=== PATIENT | male | born 1980 | race Caucasian/White ===

== ENCOUNTER 2016-09-29 12:31 | Emergency (ER) | payer BC ==
[~2016-09-29] VITALS: Ht 175.3 cm; Wt 83.5 kg
[~2016-09-29 12:31] MED LIST: DIAZ2TAB PO; FRCT/ PO; OXYC1TAB3 PO; PANT40TA PO; XOPENEX INHALER INH
[2016-09-29 12:39] VITALS: TEMP 36.5; Ht 175.3 cm; Wt 83.5 kg
[2016-09-29] MEDS ORDERED: ALUMINUM/MAGNESIUM SUSP 30 ML UDC PO STA (13:39)
[2016-09-29] MEDS ORDERED: LIDOCAINE HCL 2% VISC SOLN 20 ML UDC PO STA (13:39)
[2016-09-29 13:59] LABS: HEMATOCRIT 45.4 % (42-52); MEAN CELL VOLUME 82.2 fL (80-100); MEAN CORPUSCULAR HEMOGLOBIN 30.1 pg (25-34); MEAN CORPUSCULAR HGB CONC 36.6 g/dl (32-36); MEAN PLATELET VOLUME 10.8 fL (7.4-10.4); PLATELET COUNT 169 K/uL (130-400); RED BLOOD COUNT 5.52 M/uL (4.7-6.1); WHITE BLOOD COUNT 19.01 K/uL (4.8-10.8)
[2016-09-29 14:12] LABS: PROTHROMBIN TIME (PATIENT) 11.1 SECONDS (9.0-12.0)
[2016-09-29] MEDS ORDERED: LEVA45AE INH (14:16)
[2016-09-29 14:18] LABS: ALT/SGPT 38 U/L (12-78); AST/SGOT 15 U/L (15-37); BLOOD UREA NITROGEN 18 mg/dl (7-18); BUN/CREATININE RATIO 14.7 (10-20); CARBON DIOXIDE 26 mmol/L (21-32); CHLORIDE 107 mmol/L (98-107); GLUCOSE 88 mg/dl (70-99); POTASSIUM 3.7 mmol/L (3.5-5.1); SODIUM 144 mmol/L (136-145)
[2016-09-29 14:23] LABS: ALKALINE PHOSPHATASE 63 U/L (45-117)
--- NOTE | 2016-09-29 14:31 | DIAGNOSTIC IMAGING REPORT ---
CHEST 2 VIEWS ROUTINE HISTORY: Atypical chest pain COMPARISON: Chest 05/19/2016. FINDINGS: The lungs are clear. Cardiac silhouette is normal in size. No pleural effusions. No pneumothorax. IMPRESSION: No acute process. Electronically signed by: Dung Morales M.D. 09/29/2016 2:30 PM Dictated Date/Time: 09/29/2016 2:26 PM
[2016-09-29 14:41] LABS: BASO % 0.2 %; BASO ABS # 0.03 K/uL (0-0.2); COMPLETE YES; EOS % 0.3 %; IG% 0.2 %; LYMPH % 70.7 %; LYMPH ABS # 13.44 K/uL (1.2-3.4); NEUT % 26.6 %; SMUDGE CELLS PRESENT
[2016-09-29] MEDS ORDERED: KETOROLAC TROMETHAMINE 30 MG/ML VIAL IV STA (15:36)
--- NOTE | 2016-09-29 15:56 | EMERGENCY ROOM VISIT NOTE ---
History First contact with patient: 13:33 Chief Complaint: CHEST PAIN Stated Complaint: CHEST PAINS X 1 HOUR, NAUSEA Nursing Triage Summary: intermittennt chest pain for 1 hour, occurred while eating nausea mid sternal to left sided History of Present Illness The patient is a 36 year old male who presents to the Emergency Room with complaints of intermittent chest pain which started at 11:30 while he was eating. He states at first it was every few minutes and now it's every 20-30 minutes. He describes it as dull and achy. The patient denies any jaw pain. The patient does admit to left arm pain that has been going on for some time. The patient admits to some nausea which is better but denies any vomiting. The patient denies any change in bowel habits. He denies any urinary symptoms. The patient denies any chest tightness, leg pain, tobacco use, recent travel, history of clots. The patient states that he does have a history of reflux he was placed on Protonix when he was in the emergency room on another occasion. He was taking it but then there was an issue with his insurance and therefore he has not been taking it for the past month. The patient denies any family history of early cardiac disease. The patient himself denies any hyperlipidemia hypertension, asthma or COPD. He denies any CAD. Review of Systems 10 system review was performed and was negative unless stated otherwise history of present illness. Past Medical/Surgical History Medical Problems: (1) Chronic lymphocytic leukemia, Stiles stage 0 As, reflux, testicular torsion, hydrocele repair Family History Cancer FHx: seizures Heart disease Social History Smoking Status: Never Smoker Alcohol Use: occasionally Marital Status: Housing Status: lives with family Occupation Status: employed Current/Historical Medications Scheduled Pantoprazole (Protonix), 40 MG PO DAILY Scheduled PRN Acetamin/Butalbital/Caffeine (Fioricet), 1 TAB PO for Pain Levalbuterol Tartrate (Levalbuterol Tartrate Hfa), 2 PUFFS INH BID PRN for SOB/ Wheezing Allergies Coded Allergies: Guaifenesin (Unverified Allergy, Intermediate, "HEART PALPITATIONS", ) Physical Exam Vital Signs Date Time Temp Pulse Resp B/P Pulse Ox O2 Delivery O2 Flow Rate FiO2 09/29/16 14:43 68 18 113/68 96 Room Air 09/29/16 13:51 74 2/13/17 13:48 68 18 134/85 96 Room Air 09/29/16 12:39 36.5 85 20 149/102 99 Room Air Physical Exam GENERAL: 36-year-old white male appears in no acute distress. MENTAL Status:: Patient is alert oriented 3 EYES: PERRLA. EOMs intact. NECK: Supple, no lymphadenopathy noted. No carotid bruits noted. LUNGS: Clear auscultation without wheezes rales or rhonchi. CARDIAC: Regular rate and rhythm without murmur. Pulses is full and equal throughout. ABDOMEN: Positive bowel sounds all 4 quadrants. Soft, mild tenderness palpation in the epigastric region otherwise nontender to palpation without organomegaly or masses. LOWER EXTREMITY: Calves are nontender. No cyanosis or edema noted. No palpable cords. Medical Decision & Procedures ER Provider Diagnostic Interpretation: CHEST 2 VIEWS ROUTINE HISTORY: Atypical chest pain COMPARISON: Chest 05/19/2016. FINDINGS: The lungs are clear. Cardiac silhouette is normal in size. No pleural effusions. No pneumothorax. IMPRESSION: No acute process. Electronically signed by: Dung Morales M.D. 09/29/2016 2:30 PM Dictated Date/Time: 09/29/2016 2:26 PM Laboratory Results 09/29/16 13:50 Red Blood Count 5.52, Mean Corpuscular Volume 82.2, Mean Corpuscular Hemoglobin 30.1, Mean Corpuscular Hemoglobin Concent 36.6, Mean Platelet Volume 10.8, Neutrophils (%) (Auto) 26.6, Lymphocytes (%) (Auto) 70.7, Monocytes (%) (Auto) 2.0, Eosinophils (%) (Auto) 0.3, Basophils (%) (Auto) 0.2, Neutrophils # (Auto) 5.07, Lymphocytes # (Auto) 13.44, Monocytes # (Auto) 0.38, Eosinophils # (Auto) 0.06, Basophils # (Auto) 0.03 09/29/16 13:50 Test 09/29/16 13:50 09/29/16 15:24 White Blood Count 19.01 K/uL (4.8-10.8) Red Blood Count 5.52 M/uL (4.7-6.1) Hemoglobin 16.6 g/dL (14.0-18.0) Hematocrit 45.4 % (42-52) Mean Corpuscular Volume 82.2 fL (80-100) Mean Corpuscular Hemoglobin 30.1 pg (25-34) Mean Corpuscular Hemoglobin Concent 36.6 g/dl (32-36) Platelet Count 169 K/uL (130-400) Mean Platelet Volume 10.8 fL (7.4-10.4) Neutrophils (%) (Auto) 26.6 % Lymphocytes (%) (Auto) 70.7 % Monocytes (%) (Auto) 2.0 % Eosinophils (%) (Auto) 0.3 % Basophils (%) (Auto) 0.2 % Neutrophils # (Auto) 5.07 K/uL (1.4-6.5) Lymphocytes # (Auto) 13.44 K/uL (1.2-3.4) Monocytes # (Auto) 0.38 K/uL (0.11-0.59) Eosinophils # (Auto) 0.06 K/uL (0-0.5) Basophils # (Auto) 0.03 K/uL (0-0.2) RDW Standard Deviation 37.3 fL (36.4-46.3) RDW Coefficient of Variation 12.5 % (11.5-14.5) Immature Granulocyte % (Auto) 0.2 % Immature Granulocyte # (Auto) 0.03 K/uL (0.00-0.02) Smudge Cells PRESENT Prothrombin Time 11.1 SECONDS (9.0-12.0) Prothromb Time International Ratio 1.0 (0.9-1.1) Activated Partial Thromboplast Time 25.2 SECONDS (21.0-31.0) Partial Thromboplastin Ratio 1.0 Anion Gap 11.0 mmol/L (3-11) Est Creatinine Clear Calc Drug Dose 86.0 ml/min Estimated GFR () 90.3 Estimated GFR (Non- 77.9 BUN/Creatinine Ratio 14.7 (10-20) Calcium Level 9.0 mg/dl (8.5-10.1) Total Bilirubin 0.3 mg/dl (0.2-1) Direct Bilirubin < 0.1 mg/dl (0-0.2) Aspartate Amino Transf (AST/SGOT) 15 U/L (15-37) Alanine Aminotransferase (ALT/SGPT) 38 U/L (12-78) Alkaline Phosphatase 63 U/L (45-117) Total Creatine Kinase 93 U/L (39-308) Creatine Kinase MB < 0.5 ng/ml (0.5-3.6) Creatine Kinase MB Ratio (0-3.0) Total Protein 7.7 gm/dl (6.4-8.2) Albumin 4.4 gm/dl (3.4-5.0) Lipase 137 U/L (73-393) Bedside Troponin I 0.000 ng/ml (0-0.045) Medications Administered Medications (Trade) Dose Ordered Sig/Bhumika Route Start Time Stop Time Status Last Admin Dose Admin Lidocaine HCl (Viscous Lidocaine 2% Soln) 10 ml NOW STAT PO 09/29/16 13:39 09/29/16 13:42 DC 09/29/16 13:55 10 ML Al Hydroxide/Mg Hydroxide (Maalox Susp) 30 ml NOW STAT PO 09/29/16 13:39 09/29/16 13:43 DC 09/29/16 13:54 30 ML Ketorolac Tromethamine (Toradol Inj) 30 mg NOW STAT IV 09/29/16 15:36 09/29/16 15:37 DC 09/29/16 15:49 30 MG ED Course The patient was evaluated. The patient was placed on a monitor. EKG was ordered and interpreted as above without any acute findings. IV access was obtained. The patient was given a GI cocktail. The patient had complete resolution of his chest pain with the GI cocktail. CBC and differential, coags , CK-MB, renal profile, LFTs and lipase levels were ordered. Point of care troponin was ordered. Labs are reviewed. The patient's white count was elevated at 19,000 but the patient has CLL. He states this is a normal number for him. Otherwise labs are unremarkable. First [id number] troponin was within normal range. Chest x-ray was ordered and interpreted by the radiologist myself as above without any acute findings. The patient's case was discussed with Dr. Michael who agree with treatment plan. A 90 minute troponin was ordered and was negative. The patient was complaining of left shoulder pain which she has had on a chronic basis. He states he has increased since he has been lying in the stretcher. He was given Toradol 30 mg IV for the pain. The patient was discharged home in stable condition. Medical Decision Differential diagnosis include GERD, acute [place], PE, acute bronchitis, pneumonia, muscular strain Impression Primary Impression: Non-cardiac chest pain Additional Impression: GERD (gastroesophageal reflux disease) Departure Information Dispostion Home / Self-Care Condition GOOD Referrals Nahed Starr M.D. (PCP) Forms HOME CARE DOCUMENTATION FORM, IMPORTANT VISIT INFORMATION Patient Instructions ED GERD, My [facility] liveBooks [facility] Additional Instructions Recommend either getting her prescription for Protonix or taking Prilosec over- the-counter daily. Take Zantac 150 mg at bedtime. Recommend taking ibuprofen or Tylenol as needed for your left shoulder pain. If symptoms persists recommend following up with your family physician for further evaluation and treatment. Problem Qualifiers Additional Impression: GERD (gastroesophageal reflux disease) Esophagitis presence: without esophagitis Qualified Codes: K21.9 - Gastro- esophageal reflux disease without esophagitis
[2016-09-29 16:09] VITALS: BP 113/80; PULSE 73; O2SAT 97
== END 2016-09-29 16:11 | disposition home or self-care (01) ==
LOC: C.EDB 12:32 → C.EDC 16:11
DX: R07.9 Chest pain, unspecified (principal); K21.9 Gastro-esophageal reflux disease without esophagitis; M25.512 Pain in left shoulder; G89.29 Other chronic pain; Z85.6 Personal history of leukemia; Z79.899 Other long term (current) drug therapy; Z88.8 Allergy status to other drugs, medicaments and biological substances; Z80.9 Family history of malignant neoplasm, unspecified; Z82.49 Family history of ischemic heart disease and other diseases of the circulatory system; Z82.0 Family history of epilepsy and other diseases of the nervous system

== ENCOUNTER → 2017-02-03 | Outpatient (CLI) | payer BC ==
[~2017-02-03] MED LIST changes: -DIAZ2TAB PO; +LEVA45AE INH; -PANT40TA PO; +TRAM-10 PO; -XOPENEX INHALER INH
--- NOTE | 2017-02-03 08:24 | DIAGNOSTIC IMAGING REPORT ---
MRI OF THE CERVICAL SPINE WITHOUT IV CONTRAST CLINICAL HISTORY: Facial numbness. Dizziness. Chronic neck pain. COMPARISON STUDY: No priors. TECHNIQUE: MRI of the cervical spine is performed utilizing various T1 and T2-weighted sequences in the axial and sagittal planes. IV contrast was not administered for this examination. FINDINGS: Cervical spine: Vertebral body height and alignment are maintained throughout the cervical spine. Normal marrow signal intensity is preserved throughout the visualized osseous structures. There is mild straightening of the cervical lordosis. The atlantodental articulation appears preserved. The spinous processes are intact. Intervertebral discs: Minimal degenerative disc desiccation is noted. The disc spaces are maintained. Spinal cord: The cervical spinal cord is normal in morphology and signal intensity. C2-C3: Unremarkable. C3-C4: Unremarkable. C4-C5: Unremarkable. C5-C6: Minimal facet arthropathy is of no consequence. The central canal and neural foramina are widely patent. C6-C7: Unremarkable. C7-T1: Unremarkable. Soft tissues: The prevertebral and paraspinous soft tissues are within normal limits. Brain parenchyma: Partially imaged brain parenchyma at the skull base is within normal limits. IMPRESSION: 1. There is no disc herniation, central canal stenosis, or neural foraminal narrowing seen throughout the cervical spine. 2. The cervical spinal cord is normal in morphology and signal intensity. Dictated: 02/03/2017 7:51 AM Transcribed: 02/03/2017 8:24 AM [facility] Electronically signed by: Bharathi Basurto M.D. 02/03/2017 8:46 AM Dictated Date/Time: 02/03/2017 7:51 AM
== END | disposition home or self-care (01) ==
PROVIDERS: ATTEND Physician Assistant
DX: M54.2 Cervicalgia (principal); R20.0 Anesthesia of skin; R42 Dizziness and giddiness

== ENCOUNTER 2017-04-04 12:26 | Emergency (ER) | payer BC ==
[~2017-04-04] VITALS: Ht 175.3 cm; Wt 82.8 kg
[~2017-04-04 12:26] MED LIST changes: -OXYC1TAB3 PO; -TRAM-10 PO
[2017-04-04 12:41] VITALS: TEMP 36.7; Ht 175.3 cm; Wt 82.8 kg
[2017-04-04] MEDS ORDERED: ONDANSETRON INJ 2 MG/ML 2 ML VIAL IV STA (13:05)
[2017-04-04] MEDS ORDERED: SODIUM CHLORIDE 0.9% 1000ML 1,000 ML IV STA ×2 (13:05→13:57)
[2017-04-04] MEDS ORDERED: MoRPHine SULFATE 4 MG/ML 1 ML CARP\\VIAL IV PRN (13:15)
[2017-04-04] MEDS ORDERED: DIPHTHERIA/TETANUS/PERTUSSIS 0.5 ML SYR/VIAL IM. ONE ×2 (13:15→16:30)
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
[2017-04-04] MEDS ORDERED: OPTIRAY 320 IV PRN (13:30)
[2017-04-04 13:34] LABS: ISTAT CREATININE 1.5 mg/dl (0.6-1.3); ISTAT IONIZED CALCIUM 1.22 mmol/l (1.12-1.32)
--- NOTE | 2017-04-04 13:34 | DIAGNOSTIC IMAGING REPORT ---
CHEST ONE VIEW PORTABLE CLINICAL HISTORY: Abdominal pain. COMPARISON STUDY: Chest radiograph September 29, 2016. FINDINGS: There is no pneumothorax or pleural effusion. Cardiomediastinal silhouette is unremarkable. Linear left midlung opacity suggests atelectasis. There is no evidence of pulmonary edema. There is no consolidation to suggest pneumonia. IMPRESSION: No acute cardiopulmonary findings. Electronically signed by: Bossman Ibarra M.D. 04/04/2017 1:33 PM Dictated Date/Time: 04/04/2017 1:32 PM
[2017-04-04 13:41] LABS: HEMATOCRIT 46.8 % (42-52); MEAN CELL VOLUME 83.6 fL (80-100); MEAN CORPUSCULAR HEMOGLOBIN 30.5 pg (25-34); MEAN CORPUSCULAR HGB CONC 36.5 g/dl (32-36); MEAN PLATELET VOLUME 10.9 fL (7.4-10.4); PLATELET COUNT 176 K/uL (130-400); WHITE BLOOD COUNT 26.36 K/uL (4.8-10.8)
[2017-04-04 14:01] LABS: BUN/CREATININE RATIO 15.1 (10-20); CALCIUM 9.7 mg/dl (8.5-10.1); CREATININE 1.5 mg/dl (0.60-1.40); POTASSIUM 3.9 mmol/L (3.5-5.1)
[2017-04-04 14:18] LABS: PARTIAL THROMBOPLASTIN RATIO 0.9; PROTHROMBIN TIME (PATIENT) 11.1 SECONDS (9.0-12.0)
[2017-04-04] MEDS ORDERED: TRAM-10 PO ×2 (14:24→16:28)
[2017-04-04 14:32] LABS: BASO % 0.1 %; BASO ABS # 0.03 K/uL (0-0.2); COMPLETE YES; EOS % 0.2 %; IG% 0.3 %; LYMPH % 61.9 %; LYMPH ABS # 16.31 K/uL (1.2-3.4); MONO % 2.5 %; SMUDGE CELLS PRESENT
--- NOTE | 2017-04-04 15:08 | DIAGNOSTIC IMAGING REPORT ---
CT OF THE HEAD WITHOUT CONTRAST CLINICAL HISTORY: Fall. COMPARISON STUDY: MRI of the brain November 16, 2015. TECHNIQUE: Helical axial images of the head were obtained without IV contrast. Automated exposure control was utilized for the study. A dose lowering technique was utilized adhering to the principles of ALARA. FINDINGS: No acute intracranial hemorrhage, midline shift or mass effect is present. Ventricular system is normal. Basilar cisterns are patent. No extra axial collections are present. Wright-white differentiation is maintained. There is no calvarial fracture. Visualized portions of the sinuses and mastoid air cells are clear. IMPRESSION: 1. No acute intracranial findings. 2. No calvarial fracture. Electronically signed by: Bossman Ibarra M.D. 04/04/2017 3:07 PM Dictated Date/Time: 04/04/2017 3:05 PM
--- NOTE | 2017-04-04 15:13 | DIAGNOSTIC IMAGING REPORT ---
CT OF THE CERVICAL SPINE WITHOUT CONTRAST CLINICAL HISTORY: Trauma. COMPARISON STUDY: MRI of the cervical spine February 03, 2017. TECHNIQUE: Helical axial images of the cervical spine were obtained without IV contrast. Sagittal and coronal reconstructions were viewed. A dose lowering technique was utilized adhering to the principles of ALARA. FINDINGS: Craniocervical junction is intact. There is no acute cervical spine fracture. There is no prevertebral edema. The chest CT will be reported separately. IMPRESSION: No acute cervical spine fracture or subluxation. Electronically signed by: Bossman Ibarra M.D. 04/04/2017 3:11 PM Dictated Date/Time: 04/04/2017 3:07 PM
--- NOTE | 2017-04-04 15:19 | DIAGNOSTIC IMAGING REPORT ---
CT OF THE CHEST WITH IV CONTRAST CLINICAL HISTORY: Trauma. COMPARISON STUDY: Chest radiograph September 29, 2016 and April 04, 2017. TECHNIQUE: Following IV administration of 94 mL of Optiray-320, helical axial images of the chest were obtained. Sagittal and coronal reconstructions were viewed as well as maximal intensity projections on an independent 3-D workstation. A dose lowering technique was utilized adhering to the principles of ALARA. FINDINGS: There is no evidence of traumatic injury to the thoracic aorta. Residual thymus is noted. Size pf the heart is normal. There is no mediastinal hematoma. Prominent bilateral axillary lymph nodes are noted. These are at the upper limits of normal for size. No pneumothorax or pulmonary contusion is present. Groundglass opacities reflect atelectasis. No acute rib or thoracic spine fracture is identified. There are no traumatic findings within the upper abdomen. A 7 mm left lobe thyroid nodule is incidentally noted. IMPRESSION: No acute traumatic findings within the chest. Electronically signed by: Bossman Ibarra M.D. 04/04/2017 3:18 PM Dictated Date/Time: 04/04/2017 3:12 PM
--- NOTE | 2017-04-04 15:32 | DIAGNOSTIC IMAGING REPORT ---
CT OF THE ABDOMEN AND PELVIS WITH CONTRAST CLINICAL HISTORY: Fall. COMPARISON STUDY: CT of the abdomen and pelvis May 19, 2016. TECHNIQUE: Following IV administration of 94 mL of Optiray-320, axial images of the abdomen and pelvis were obtained from the lung bases to the proximal femurs. Images were reviewed in the axial, sagittal, and coronal planes. IV contrast was administered without complication. A dose lowering technique was utilized adhering to the principles of ALARA. CT DOSE: 2683.78 mGy.cm FINDINGS: No pneumoperitoneum is present. There is no evidence of traumatic injury to the liver, spleen, adrenal glands, right kidney or pancreas. A right renal cyst is noted. There is trace left perinephric fluid which measures above water attenuation. This was not present on CT of May 19, 2016. Caliber and wall thickness of small and large bowel are normal. There is no hemoperitoneum. No acute pelvic or lumbar spine fracture is identified. IMPRESSION: 1. Trace left perinephric fluid which likely measures above water attenuation. This is nonspecific but given the clinical history could reflect trace perinephric hemorrhage. No discrete renal laceration identified. Close clinical monitoring is recommended. Findings discussed with Dr. Tavarez at time of dictation. 2. No additional traumatic findings within the abdomen or pelvis. Electronically signed by: Bossman Ibarra M.D. 04/04/2017 3:30 PM Dictated Date/Time: 04/04/2017 3:18 PM
[2017-04-04 15:57] LABS: URINE APPEARANCE CLOUDY (CLEAR); URINE BILIRUBIN NEG (NEG); URINE COLOR YELLOW; URINE NITRITE NEG (NEG); URINE SPECIFIC GRAVITY 1.022 (1.000-1.030); UROBILINOGEN NEG (NEG)
[2017-04-04 15:58] LABS: MANUAL MICROSCOPIC REQUIRED? NO; REVIEW REQ? YES
[2017-04-04 16:12] LABS: URINE MUCUS PRESENT (NONE PRSENT)
[2017-04-04] MEDS ORDERED: TRAMADOL HCL 50 MG TAB PO STA (16:13)
[2017-04-04 16:16] LABS: URINE EPITHELIAL CELL AUTO 0-5 /lpf (0-5)
[2017-04-04] MEDS ORDERED: OXYC1TAB3 PO (17:26)
[2017-04-04 17:42] VITALS: BP 117/71; PULSE 68; O2SAT 98
== END 2017-04-04 17:38 | disposition home or self-care (01) ==
LOC: C.EDB 12:26
DX: S29.8XXA Other specified injuries of thorax, initial encounter (principal); S39.81XA Other specified injuries of abdomen, initial encounter; S37.012A Minor contusion of left kidney, initial encounter; N17.9 Acute kidney failure, unspecified; V18.0XXA Pedal cycle driver injured in noncollision transport accident in nontraffic accident, initial encounter; Y92.828 Other wilderness area as the place of occurrence of the external cause; Z85.6 Personal history of leukemia; Z80.9 Family history of malignant neoplasm, unspecified; Z82.49 Family history of ischemic heart disease and other diseases of the circulatory system; J45.909 Unspecified asthma, uncomplicated; N44.00 Torsion of testis, unspecified

== ENCOUNTER → 2017-07-07 | Outpatient (CLI) | payer BC ==
[~2017-07-07] MED LIST changes: -FRCT/ PO; +OPTIRAY 320 IV PRN; +OXYC1TAB3 PO; +TRAM-10 PO
--- NOTE | 2017-07-07 11:56 | DIAGNOSTIC IMAGING REPORT ---
CT ABDOMEN COMBO CT DOSE: 1455.51 mGycm CLINICAL HISTORY: N28.89 Renal hemorrhage, TECHNIQUE: Unenhanced images were obtained through the upper abdomen. Patient was then scanned in a dynamic helical fashion during intravenous administration of 95 cc of Optiray 320. 5 minute delayed images were also acquired. A dose lowering technique was utilized adhering to the principles of ALARA. COMPARISON STUDY: April 04, 2017 FINDINGS: The visualized portions of the lung bases are unremarkable. No hepatic masses are visualized. No gallbladder abnormality is visualized. There is splenic masses are visualized. The spleen is borderline enlarged measuring 11.6 cm. No pancreatic masses are visualized. No adrenal masses are visualized. There are no perinephric fluid collections. There is no hydronephrosis. There is a 16 mm right renal cyst. There is a 5 mm hyperdense left renal cyst. No collecting system lesions are visualized. There is no evidence of abdominal aortic dilatation. There are scattered Lymph nodes which are not pathologically enlarged by size criteria. IMPRESSION: 1. Interval resolution of the trace left-sided perinephric fluid 2. 16 mm right renal cyst and 5 mm hyperdense left renal cyst 3. No acute intra-abdominal findings. Electronically signed by: Silvio Gautam M.D. 07/07/2017 11:54 AM Dictated Date/Time: 07/07/2017 11:48 AM
== END | disposition home or self-care (01) ==
LOC: C.CTS 10:40
PROVIDERS: ATTEND Urology
DX: N28.89 Other specified disorders of kidney and ureter (principal); N28.1 Cyst of kidney, acquired

== ENCOUNTER 2017-08-12 16:43 | Emergency (ER) | payer BC ==
[~2017-08-12] VITALS: Ht 175.3 cm; Wt 90.2 kg
[~2017-08-12 16:43] MED LIST changes: -OPTIRAY 320 IV PRN
[2017-08-12 16:46] VITALS: TEMP 36.7; Ht 175.3 cm; Wt 90.2 kg
[2017-08-12 16:55] VITALS: O2SAT 96
[2017-08-12] MEDS ORDERED: FRCT/ PO (17:06)
--- NOTE | 2017-08-12 17:16 | EMERGENCY ROOM VISIT NOTE ---
History Report prepared by Estella: Nguyen Hartman Under the Supervision of: Dr. Irvin Garcia M.D. First contact with patient: 16:52 Chief Complaint: CHEST PAIN Stated Complaint: CHEST PAIN Nursing Triage Summary: Patient c/o of chest pain on and off for weeks, worse today. History of Present Illness The patient is a 37 year old male with a past medical history of Chronic lymphocytic leukemia who presents to the ED with a cc of worsening chest pain beginning a few days ago. Positive history of atrial tachycardia and palpitations. nausea, vomiting, dizziness, and swelling in his legs. Negative history of blood clots, trauma, rashes, or sob. The patient states that about an hour ago he had a left sided chest pain episode that lasted about 5 minutes, noting it was different then any chest pain he experienced before. He describes his discomfort as a pressure on his chest, that worsens with movement. He notes that he felt warm throughout his body for a few seconds. The patient states he felt sick all last week. Source of History: patient Onset: few days ago Position: chest (left) Quality: pressure, other (chest pain) Timing: worsening Modifying Factors (Worsening): movement Associated Symptoms: + nausea, + vomiting, No SOB Review of Systems See HPI for pertinent positives and negatives. A total of ten systems were reviewed and were otherwise negative. Past Medical & Surgical Medical Problems: (1) Chronic lymphocytic leukemia, Stiles stage 0 Family History Cancer FHx: seizures Heart disease Social History Smoking Status: Never Smoker Alcohol Use: occasionally Drug Use: none Marital Status: Housing Status: lives with family Occupation Status: employed Current/Historical Medications Scheduled PRN Acetamin/Butalbital/Caffeine (Fioricet), 1 TAB PO DIRECTED PRN for Migraine Levalbuterol Tartrate (Levalbuterol Tartrate Hfa), 2 PUFFS INH BID PRN for SOB/ Wheezing Allergies Coded Allergies: Guaifenesin (Verified Allergy, Intermediate, "HEART PALPITATIONS", ) Physical Exam Vital Signs Date Time Temp Pulse Resp B/P (MAP) Pulse Ox O2 Delivery O2 Flow Rate FiO2 08/12/17 20:25 76 18 115/73 99 08/12/17 18:30 136/96 08/12/17 18:18 64 19 93 08/12/17 18:00 135/89 08/12/17 17:48 61 20 95 08/12/17 17:43 63 13 94 08/12/17 17:38 64 08/12/17 17:30 120/80 08/12/17 17:04 69 18 134/92 96 Room Air 08/12/17 17:00 134/92 08/12/17 16:55 96 Room Air 08/12/17 16:55 96 Room Air 08/12/17 16:46 36.7 72 18 165/92 100 Room Air Physical Exam GENERAL: Awake, alert, well-appearing, NAD HENT: Wears glasses. Normocephalic, atraumatic. EYES: Normal conjunctiva. Sclera non-icteric. NECK: Supple. No nuchal rigidity. FROM. RESPIRATORY: CTAB, no rhonchi, wheezing, crackles CARDIAC: RRR, no MRG ABDOMEN: Soft, NTND, BS+ MSK: No calve pain. No chest wall TTP, no LE edema NEURO: GCS 15, CN 2-12 intact, moves all 4s on command SKIN: No rash or jaundice noted. Medical Decision & Procedures ER Provider Diagnostic Interpretation: Radiology results as stated below per my review and radiologist interpretation: SINGLE VIEW CHEST CLINICAL HISTORY: Atypical chest pain. FINDINGS: An AP, portable, upright chest radiograph is compared to chest x-ray and chest CT dated 04/04/2017. The examination is degraded by portable technique and apical lordotic positioning. The cardiomediastinal silhouette is unremarkable. The lungs and pleural spaces are clear. No pneumothorax is seen. The bony thorax is grossly intact. IMPRESSION: No active disease in the chest. Electronically signed by: Bharathi Basurto M.D. 08/12/2017 5:59 PM Dictated Date/Time: 08/12/2017 5:58 PM Laboratory Results 08/12/17 16:55 Red Blood Count 5.53, Mean Corpuscular Volume 84.3, Mean Corpuscular Hemoglobin 30.2, Mean Corpuscular Hemoglobin Concent 35.8, Mean Platelet Volume 10.7, Neutrophils (%) (Auto) 18.6, Lymphocytes (%) (Auto) 77.0, Monocytes (%) (Auto) 3.3, Eosinophils (%) (Auto) 0.7, Basophils (%) (Auto) 0.2, Neutrophils # (Auto) 5.15, Lymphocytes # (Auto) 21.34, Monocytes # (Auto) 0.91, Eosinophils # (Auto) 0.20, Basophils # (Auto) 0.05 08/12/17 16:55 Test 08/12/17 16:55 08/12/17 17:01 08/12/17 19:24 White Blood Count 27.70 K/uL (4.8-10.8) Red Blood Count 5.53 M/uL (4.7-6.1) Hemoglobin 16.7 g/dL (14.0-18.0) Hematocrit 46.6 % (42-52) Mean Corpuscular Volume 84.3 fL (80-100) Mean Corpuscular Hemoglobin 30.2 pg (25-34) Mean Corpuscular Hemoglobin Concent 35.8 g/dl (32-36) Platelet Count 179 K/uL (130-400) Mean Platelet Volume 10.7 fL (7.4-10.4) Neutrophils (%) (Auto) 18.6 % Lymphocytes (%) (Auto) 77.0 % Monocytes (%) (Auto) 3.3 % Eosinophils (%) (Auto) 0.7 % Basophils (%) (Auto) 0.2 % Neutrophils # (Auto) 5.15 K/uL (1.4-6.5) Lymphocytes # (Auto) 21.34 K/uL (1.2-3.4) Monocytes # (Auto) 0.91 K/uL (0.11-0.59) Eosinophils # (Auto) 0.20 K/uL (0-0.5) Basophils # (Auto) 0.05 K/uL (0-0.2) RDW Standard Deviation 38.3 fL (36.4-46.3) RDW Coefficient of Variation 12.6 % (11.5-14.5) Immature Granulocyte % (Auto) 0.2 % Immature Granulocyte # (Auto) 0.05 K/uL (0.00-0.02) Smudge Cells PRESENT Prothrombin Time 10.2 SECONDS (9.0-12.0) Prothromb Time International Ratio 1.0 (0.9-1.1) Activated Partial Thromboplast Time 25.0 SECONDS (21.0-31.0) Partial Thromboplastin Ratio 1.0 D-Dimer < 190 ug/L FEU (0-500) Anion Gap 7.0 mmol/L (3-11) Est Creatinine Clear Calc Drug Dose 94.5 ml/min Estimated GFR () 89.6 Estimated GFR (Non- 77.3 BUN/Creatinine Ratio 15.8 (10-20) Calcium Level 9.0 mg/dl (8.5-10.1) Total Bilirubin 0.3 mg/dl (0.2-1) Direct Bilirubin < 0.1 mg/dl (0-0.2) Aspartate Amino Transf (AST/SGOT) 23 U/L (15-37) Alanine Aminotransferase (ALT/SGPT) 39 U/L (12-78) Alkaline Phosphatase 76 U/L (45-117) Total Protein 7.9 gm/dl (6.4-8.2) Albumin 4.5 gm/dl (3.4-5.0) Lipase 154 U/L (73-393) Bedside Troponin I < 0.030 ng/ml (0-0.045) Troponin I < 0.015 ng/ml (0-0.045) Laboratory results reviewed by me ECG Indication: chest pain Rate (beats per minute): 86 Rhythm: normal sinus Findings: RBBB (incomplete), T-wave inversion (single in v3), other (normal interval, no other STS changes or TWI. ) ED Course 1701: The patient was evaluated in room A3. A complete history and physical exam was performed. 1819: I reevaluated the patient who was resting comfortably. I discussed some test findings, he verbalized complete understanding and agreement. 1909: I reevaluated the patient. Discussed results and discharge instructions: He verbalized understanding and agreement. The patient is ready for discharge. Medical Decision The patient is a 37 year old male with a past medical history of Chronic lymphocytic leukemia who presents to the ED with a cc of worsening chest pain beginning a few days ago. Patient was seen and evaluated the bedside. Patient was complaining of some acute onset of some chest pains. Patient states it was like a squeezing and then radiated all over his chest and described as a wart like feeling. Patient does not describe it is exertional. Patient denies any nausea vomiting or diaphoresis. Patient does have a history of CLL. Patient does have increased risk of PE. Patient has had no recurrence of pains in again looks fairly well on exam. Patient denies any infectious symptoms. Patient did have blood work completed along with an EKG troponin. Patient's troponin was negative. Patient 's EKG did show an incomplete right bundle branch block without any ischemic changes. Patient's blood work did show an elevated white blood cell count. This is likely most consistent with his CLL. Patient did have a d-dimer that was completed that was not considered to be elevated. Given this less likely PE. Patient's chest x-ray negative acute. Patient did have a repeat troponin drawn. This is again negative. Patient had a heart score less than 3. Patient was deemed suitable for outpatient follow-up and treatment. Patient was given return precautions and follow-up instructions. Patient discharged. Medication Reconcilliation Current Medication List: was personally reviewed by me Impression Primary Impression: Chest pain Additional Impressions: Leukocytosis Chronic lymphocytic leukemia, Stiles stage 0 Scribe Attestation The scribe's documentation has been prepared under my direction and personally reviewed by me in its entirety. I confirm that the note above accurately reflects all work, treatment, procedures, and medical decision making performed by me. Departure Information Dispostion Home / Self-Care Referrals No Doctor, Assigned (PCP) Forms Call Back Authorization, HOME CARE DOCUMENTATION FORM, IMPORTANT VISIT INFORMATION Patient Instructions Chest Pain - [facility], [facility] Additional Instructions Please return to the emergency department if you have worsening or recurrent symptoms not amenable to at-home treatment. Please call for a follow-up appointment with her primary care physician. Please take your medications as prescribed. If you have other concerns and/or complaints please feel free to also call your primary care physician's office or return the ED for further evaluation, management, and treatment. Take your medications as prescribed. You have been examined and treated today on an emergency basis only. This is not a substitute for, or an effort to provide, complete comprehensive medical care. It is impossible to recognize and treat all injuries or illnesses in a single emergency department visit. It is therefore important that you follow up closely with [facility], your PCP, and/or your specialist(s). Call as soon as possible for an appointment. Thank you for your time and consideration. I look forward to speaking with you again soon. Please don't hesitate to call us if you have any questions. Problem Qualifiers Primary Impression: Chest pain Chest pain type: unspecified Qualified Codes: R07.9 - Chest pain, unspecified Additional Impressions: Leukocytosis Leukocytosis type: lymphocytosis Qualified Codes: D72.820 - Lymphocytosis ( symptomatic)
[2017-08-12 17:37] LABS: HEMATOCRIT 46.6 % (42-52); MEAN CELL VOLUME 84.3 fL (80-100); MEAN CORPUSCULAR HEMOGLOBIN 30.2 pg (25-34); MEAN CORPUSCULAR HGB CONC 35.8 g/dl (32-36); MEAN PLATELET VOLUME 10.7 fL (7.4-10.4); PLATELET COUNT 179 K/uL (130-400); RED BLOOD COUNT 5.53 M/uL (4.7-6.1)
[2017-08-12 17:43] LABS: PROTHROMBIN TIME (PATIENT) 10.2 SECONDS (9.0-12.0)
[2017-08-12 17:51] LABS: ALT/SGPT 39 U/L (12-78); BLOOD UREA NITROGEN 19 mg/dl (7-18); BUN/CREATININE RATIO 15.8 (10-20); CARBON DIOXIDE 27 mmol/L (21-32); CHLORIDE 105 mmol/L (98-107); GLUCOSE 100 mg/dl (70-99); POTASSIUM 3.5 mmol/L (3.5-5.1); SODIUM 139 mmol/L (136-145)
[2017-08-12 17:56] LABS: ALKALINE PHOSPHATASE 76 U/L (45-117); AST/SGOT 23 U/L (15-37)
--- NOTE | 2017-08-12 18:00 | DIAGNOSTIC IMAGING REPORT ---
SINGLE VIEW CHEST CLINICAL HISTORY: Atypical chest pain. FINDINGS: An AP, portable, upright chest radiograph is compared to chest x-ray and chest CT dated 04/04/2017. The examination is degraded by portable technique and apical lordotic positioning. The cardiomediastinal silhouette is unremarkable. The lungs and pleural spaces are clear. No pneumothorax is seen. The bony thorax is grossly intact. IMPRESSION: No active disease in the chest. Electronically signed by: Bharathi Basurto M.D. 08/12/2017 5:59 PM Dictated Date/Time: 08/12/2017 5:58 PM
[2017-08-12 18:23] LABS: BASO % 0.2 %; BASO ABS # 0.05 K/uL (0-0.2); COMPLETE YES; EOS % 0.7 %; IG% 0.2 %; LYMPH ABS # 21.34 K/uL (1.2-3.4); MONO % 3.3 %; NEUT % 18.6 %; SMUDGE CELLS PRESENT
[2017-08-12 20:25] VITALS: BP 115/73; PULSE 76; O2SAT 99
== END 2017-08-12 20:25 | disposition home or self-care (01) ==
LOC: C.EDB 16:44 → C.EDA 20:25
DX: R07.9 Chest pain, unspecified (principal); D72.829 Elevated white blood cell count, unspecified; I45.10 Unspecified right bundle-branch block; C91.10 Chronic lymphocytic leukemia of B-cell type not having achieved remission; R11.2 Nausea with vomiting, unspecified; Z82.0 Family history of epilepsy and other diseases of the nervous system; Z82.49 Family history of ischemic heart disease and other diseases of the circulatory system

== ENCOUNTER → 2017-11-04 | Outpatient (CLI) | payer BC ==
[~2017-11-04] MED LIST changes: +FRCT/ PO; -OXYC1TAB3 PO; -TRAM-10 PO
--- NOTE | 2017-11-04 16:22 | DIAGNOSTIC IMAGING REPORT ---
CHEST 2 VIEWS ROUTINE HISTORY: 37 years-old Male R05 chronic cough with chest discomfort COMPARISON: Chest radiograph 08/12/2017 TECHNIQUE: PA and lateral views of the chest FINDINGS: Cardiomediastinal and hilar silhouettes are within normal limits. There is no pneumothorax or pleural effusion. No overt pulmonary edema. Linear subsegmental opacities of the lingula and basal left lower lobe. No lobar airspace consolidation. The bones of the chest appear grossly intact. IMPRESSION: Linear subsegmental opacities of the lingula and basal left lower lobe suggest atelectasis. The above report was generated using voice recognition software. It may contain grammatical, syntax or spelling errors. Electronically signed by: Benjamin Denis M.D. 11/04/2017 4:21 PM Dictated Date/Time: 11/04/2017 4:19 PM
== END | disposition home or self-care (01) ==
LOC: C.RAD1850 16:02
PROVIDERS: ATTEND Family Medicine
DX: R05 Cough (principal)